=== PATIENT | female | born 1975 | race Caucasian/White ===

== ENCOUNTER 2019-08-15 07:28 | Emergency (ER) | payer MEDICARE, MEDICAID ==
--- OUTSIDE RECORDS SUMMARY | 2019-08-15 07:37 | XMS REPORT | Continuity of Care Document ---
:1975 External Reference #:[id number] Author Name JAY JAY Gottlieb Address [address] [place] [id number] Problems Active Problems Provider Date Pneumonia Onset: 10/31/2018 Adult health examination Onset: 02/15/2018 Social History Type Date Description Comments Sex Unknown Tobacco Use Start: Unknown Patient has never smoked Tobacco Use Start: Unknown End: Unknown Patient is a former smoker Smoking Status Reviewed: 07/18/19 Patient is a former smoker Allergies, Adverse Reactions, Alerts Description No Information Available Medications Active Medications SIG Qnty Indications Ordering Date Provider Clear Away One Step 1 pad to 72units B07.0 JAY JAY Gottlieb 07/18/2019 Wart Remover plantar wart 40% Pads daily Escitalopram Oxalate Oral; Take 1 & 45tabs Janice 05/31/2019 1/2 Tablets By Uche, DO 10mg Tablets Mouth Every Day (Anti-Anxiety) Nortrel 1/35 (28) Oral; Take One 84tabs Unknown 03/14/2019 Tablet By Mouth 1-35mg-mcg Tablets Every Day (Hormone) Metformin HCL Oral; Take One 180tabs Unknown 02/11/2019 1000mg Tablet By Mouth Tablets 2 Times A Day (PCOS) Mometasone Furoate Nasal; 2 Sprays 17units Unknown 11/21/2018 Each Nostril 50mcg/Act Suspension Every Day as Needed (Nasal Congestion) Use For 5 Days Tab-A-Olya/Iron Oral; Take One 30tabs Unknown 09/01/2018 Tablet By Mouth Tablets Everyday (Supplement) Nortrel 1/35 (28) Oral; Take One 84tabs Unknown 04/05/2018 Tablet By Mouth 1-35mg-mcg Tablets Every Day (Hormone) Triamcinolone External; Apply 30units Unknown 12/29/2016 Acetonide To Chest Rash 2 0.1% Cream Times A Day as Needed (May Apply To Neck & Chest) Bacitracin-Neomycin- External; Apply 28.35units Unknown 10/17/2015 Polymyxin To 400-5-5000 Cuts/Abrasions Ointment as Needed (Antibacterial) Mucinex Oral; Take One 60tabs Unknown 08/27/2014 600mg Tablets Tablet By Mouth ER 12HR 2 Times A Day as Needed To Improve Ear Drainage (MDD=2 Tabs) Immunizations CPT Code Status Date Vaccine Lot # [id number] Given 06/05/2013 Flu High Dose 29477 Given 06/05/2013 Flumist 67990 Given 06/05/2013 Influenza Virus Vaccine, Quadrivalent, Split, Preservative Free 25790 Given 06/05/2013 Flu < 65 years 74137 Given 06/05/2013 Influenza Virus Vaccine, Quadrivalent, Split, Im Use 0.25ML 88025 Given 06/05/2013 Influenza Virus Vaccine, Quadrivalent, Split, Im Use 0.25ML 04060 Given 06/05/2013 Influenza Virus Vaccine, Quadrivalent, Split, Im Use 0.25ML 68393 Given 09/04/2012 Hep A Adult for >18 yrs Havrix/Vaqta 41308 Given 06/12/2012 Influenza Virus Vaccine, Quadrivalent, Split, Im Use 0.25ML 55669 Given 06/12/2012 Influenza Virus Vaccine, Quadrivalent, Split, Im Use 0.25ML 00894 Given 06/12/2012 Influenza Virus Vaccine, Quadrivalent, Split, Im Use 0.25ML 43626 Given 06/12/2012 Flu < 65 years 01687 Given 06/12/2012 Influenza Virus Vaccine, Quadrivalent, Split, Preservative Free 38485 Given 06/12/2012 Flumist 30086 Given 06/12/2012 Flu High Dose 13981 Given 02/29/2012 Hep A Adult for >18 yrs Havrix/Vaqta 33817 Given 06/12/2011 Influenza Virus Vaccine, Quadrivalent, Split, Im Use 0.25ML 17025 Given 07/21/2010 Tdap - Boostrix/Adacel [id number] Refused 08/23/2018 Influenza Virus Vaccine, Quadrivalent, Split, Im Use 0.25ML 63648 Refused 02/15/2018 Influenza Virus Vaccine, Quadrivalent, Split, Im Use 0.25ML 77391 Refused 08/16/2016 Influenza Virus Vaccine, Quadrivalent, Split, Im Use 0.25ML Vital Signs Date Vital Result Comment 07/18/2019 3:05pm Height 57.25 inches 4'9.25" Weight 177.00 lb Heart Rate 97 /min Body Temperature 98.3 F O2 % BldC Oximetry 97 % BMI (Body Mass Index) 38.0 kg/m2 06/28/2019 3:00pm BP Systolic 102 mmHg BP Diastolic 70 mmHg Height 58.25 inches 4'10.25" Weight 176.00 lb Heart Rate 86 /min Body Temperature 98.1 F O2 % BldC Oximetry 96 % BMI (Body Mass Index) 36.5 kg/m2 Results Test Acquired Facility Test Result H/L Range Note Date 10 Yr CHD Risk 03/22/2019 N2N/CCD Import 10 Yr CHD Risk 0.5% TSH 03/16/2019 N2N/CCD Import TSH 2.51 0.34-5.6 mcIU/mL 0 mcIU/mL Triglycerides 03/16/2019 N2N/CCD Import Triglycerides 78 mg/dL Sodium 03/16/2019 N2N/CCD Import Sodium 139 135-145 mmol/L mmol/L Protein, Total 03/16/2019 N2N/CCD Import Protein, Total 6.8 g/dL 6.4- 8.9 g/dL Potassium 03/16/2019 N2N/CCD Import Potassium 4.4 3.5-5.0 mmol/L mmol/L LDL Cholesterol 03/16/2019 N2N/CCD Import LDL Cholesterol 117 mg/dL Hemoglobin A1c 03/16/2019 N2N/CCD Import Hemoglobin A1c 5.8 % High 4.0- 5.6 % HDL Cholesterol 03/16/2019 N2N/CCD Import HDL Cholesterol 59.5 mg/dL Glucose 03/16/2019 N2N/CCD Import Glucose 79 mg/dL 70-100 mg/dL Globulin 03/16/2019 N2N/CCD Import Globulin 2.6 g/dL 2-4 g/dL GFR Non Afr Amer 03/16/2019 N2N/CCD Import GFR Non Afr Amer 106.5 _ >60 GFR Afr Amer 03/16/2019 N2N/CCD Import GFR Afr Amer 128.9 _ >60 Ferritin 03/16/2019 N2N/CCD Import Ferritin 49.5 11-307 ng/mL ng/mL Creatinine 03/16/2019 N2N/CCD Import Creatinine 0.61 0.51-0.9 mg/dL 5 mg/dL Co2 03/16/2019 N2N/CCD Import Co2 24 mmol/L 22-32 mmol/L Cholesterol 03/16/2019 N2N/CCD Import Cholesterol 192 mg/dL Chloride 03/16/2019 N2N/CCD Import Chloride 107 101-111 mmol/L mmol/L Calcium 03/16/2019 N2N/CCD Import Calcium 9.2 mg/dL 8.6-10.3 mg/dL BUN/Creat Ratio 03/16/2019 N2N/CCD Import BUN/Creat Ratio 14.8 _ 8-20 BUN 03/16/2019 N2N/CCD Import BUN 9 mg/dL 6-24 mg/dL Bilirubin Total 03/16/2019 N2N/CCD Import Bilirubin Total 0.70 0.2-1.0 mg/dL mg/dL Ast 03/16/2019 N2N/CCD Import Ast 20 U/L 13-39 U/L Anion Gap 03/16/2019 N2N/CCD Import Anion Gap 8 mmol/L 2-11 mmol/L Alt 03/16/2019 N2N/CCD Import Alt 29 U/L 7-52 U/L Alk Phos 03/16/2019 N2N/CCD Import Alk Phos 72 U/L 34-104 U/L Albumin 03/16/2019 N2N/CCD Import Albumin 4.2 g/dL 3.2-5.2 g/dL A/G Ratio 03/16/2019 N2N/CCD Import A/G Ratio 1.6 _ 1-3 Procedures Description No Information Available Medical Devices Description No Information Available Encounters Type Date Location Provider Dx Diagnosis Office Visit 07/18/2019 3:15p [facility] JAY JAY Kern M79.671 Pain in right foot B07.0 Plantar wart Office Visit 06/28/2019 3:00p [facility] Janice Ivey DO Z00.00 Encntr for general adult medical exam w/o abnormal findings Z12.31 Encntr screen mammogram for malignant neoplasm of breast Z68.36 Body mass index (BMI) 36.0-36.9, adult Assessments Date Code Description Provider 07/18/2019 M79.671 Pain in right foot Alisson Kern, JAY JAY 07/18/2019 B07.0 Plantar wart Alisson Kern, I&C TECH 06/28/2019 Z00.00 Encounter for general adult medical Janice Krunalteddy, examination without abnormal findings 06/28/2019 Z12.31 Encounter for screening mammogram for Janice Ivey, DO malignant neoplasm of breast 06/28/2019 Z68.36 Body mass index (BMI) 36.0-36.9, adult Janice Ivey DO Plan of Treatment Future Appointment(s):12/27/2019 3:00 pm - Janice Ivey DO at [facility] - Alisson KernERNYPM79.671 Pain in right footComments:discussed foot pain that appears to be caused by plantar wart on her heel recommend using OTC wart medication can consider returning for cryotherapy if no improvement can take acetaminophen or ibuprofen as needed for pain in foot follow up as needed paperwork completed for assisted gbbwesF44.0 Plantar wartNew Medication:Clear Away One Step Wart Remover 40 % - 1 pad to plantar wart daily Functional Status Description No Information Available Mental Status Description No Information Available Referrals Description No Information Available
--- OUTSIDE RECORDS SUMMARY | 2019-08-15 07:38 | XMS REPORT | Continuity of Care Document ---
:1975 External Reference #:[id number] Author Name Janice Ivey, DO Address [address] [place] [address] Problems Active Problems Provider Date Pneumonia Onset: 10/31/2018 Adult health examination Onset: 02/15/2018 Social History Type Date Description Comments Sex Unknown Tobacco Use Start: Unknown Patient has never smoked Smoking Status Reviewed: 06/28/19 Patient has never smoked Allergies, Adverse Reactions, Alerts Description No Information Available Medications Active Medications SIG Qnty Indications Ordering Date Provider Escitalopram Oxalate Oral; Take 1 & 45tabs Janice 05/31/2019 1/2 Tablets By Krunalteddy, DO 10mg Tablets Mouth Every Day (Anti-Anxiety) [...] CPT Code Status Date Vaccine Lot # [id number] Given 06/05/2013 Flu High Dose 16085 Given 06/05/2013 Flumist 18063 Given 06/05/2013 Influenza Virus Vaccine, Quadrivalent, Split, Preservative Free 43883 Given 06/05/2013 Flu < 65 years 81479 Given 06/05/2013 Influenza Virus Vaccine, Quadrivalent, Split, Im Use 0.25ML 14395 Given 06/05/2013 Influenza Virus Vaccine, Quadrivalent, Split, Im Use 0.25ML 42324 Given 06/05/2013 Influenza Virus Vaccine, Quadrivalent, Split, Im Use 0.25ML 59689 Given 09/04/2012 Hep A Adult for >18 yrs Havrix/Vaqta 17142 Given 06/12/2012 Influenza Virus Vaccine, Quadrivalent, Split, Im Use 0.25ML 24551 Given 06/12/2012 Influenza Virus Vaccine, Quadrivalent, Split, Im Use 0.25ML 26010 Given 06/12/2012 Influenza Virus Vaccine, Quadrivalent, Split, Im Use 0.25ML 72678 Given 06/12/2012 Flu < 65 years 60005 Given 06/12/2012 Influenza Virus Vaccine, Quadrivalent, Split, Preservative Free 32533 Given 06/12/2012 Flumist 24534 Given 06/12/2012 Flu High Dose 47265 Given 02/29/2012 Hep A Adult for >18 yrs Havrix/Vaqta 45232 Given 06/12/2011 Influenza Virus Vaccine, Quadrivalent, Split, Im Use 0.25ML 38600 Given 07/21/2010 Tdap - Boostrix/Adacel 22076 Refused 08/23/2018 Influenza Virus Vaccine, Quadrivalent, Split, Im Use 0.25ML 62269 Refused 02/15/2018 Influenza Virus Vaccine, Quadrivalent, Split, Im Use 0.25ML 93972 Refused 08/16/2016 Influenza Virus Vaccine, Quadrivalent, Split, Im Use 0.25ML Vital Signs Date Vital Result Comment 06/28/2019 3:00pm BP Systolic 102 mmHg BP Diastolic 70 mmHg Height 58.25 inches 4'10.25" Weight 176.00 lb Heart Rate 86 /min Body Temperature 98.1 F O2 % BldC Oximetry 96 % BMI (Body Mass Index) 36.5 kg/m2 10/31/2018 1:43pm BP Systolic 110 mmHg Height 57.50 inches 4'9.50" Weight 167.00 lb Heart Rate 109 /min Body Temperature 98.3 F O2 % BldC Oximetry 96 % BMI (Body Mass Index) 35.51 kg/m2 Results Test Acquired Facility Test Result [...] Date Location Provider Dx Diagnosis Office Visit 06/28/2019 [facility] Janice Ivey, Z00.00 Encntr for general 3:00p adult medical exam w/o abnormal findings Z12.31 Encntr screen mammogram for malignant neoplasm of breast Z68.36 Body mass index (BMI) 36.0-36.9, adult Assessments Date Code Description Provider 06/28/2019 Z00.00 Encounter for general adult medical Janice IveyDO examination without abnormal findings 06/28/2019 Z12.31 Encounter for screening mammogram for Janice Ivey, DO malignant neoplasm of breast 06/28/2019 Z68.36 Body mass index (BMI) 36.0-36.9, adult Janice Ivey, DO Plan of Treatment Future Appointment(s):12/27/2019 3:00 pm - Janice Ivey, DO at [facility] Main - Janice Ivey, DOZ00.00 Encounter for general adult medical examination without abnormal findingsComments:Generally doing well No major complaints today except finger for which she will see derm Declines flu vaccinedeclines [facility] orderedPlan is 6month follow up, sooner if faarlqD61.31 Encounter for screening mammogram for malignant neoplasm of breastNew Xrays:Mammography, Bilateral, Ordered: 06/28/19Comments:Discussed every year vs every other year - because we do not know family hx, I think every year is advisable - pt agrees to thisZ68.36 Body mass index (BMI) 36.0- 36.9, adultComments:Encouraged healthy lifestyle changes including increasing exercise, which she reports she is trying to do Functional Status Description No Information Available Mental Status Description No Information Available Referrals Description No Information Available
[2019-08-15 08:05] VITALS: BP 134/80
[2019-08-15] MEDS ORDERED: Tetan/Diph/Pertus SYR(Tdap)* 0.5 ML SYR(BOOSTRIX) use SYR contains LATEX IM ONE (08:41)
[2019-08-15] MEDS ORDERED: Ibuprofen TAB* 600 MG PO ONE (08:52)
[2019-08-15] MEDS ORDERED: Lidocaine 1% MPF ** 5 ML VIAL INJ ONE (09:35)
--- NOTE | 2019-08-15 09:40 | UC ---
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 NOT UP-TO-DATE TETANUS. - History Of Current Complaint Chief Complaint: UCLaceration Stated Complaint: CUT HAND Time Seen by Provider: 08/15/19 08:04 Hx Obtained From: Patient Hx Last Menstrual Period: 10/22/18 Laceration Location: Hand - RIGHT Mechanism Of Injury: Sharp Trauma Onset/Duration: Sudden Onset, Lasting Hours, Still Present Severity: Moderate Pain Intensity: 7 Pain Scale Used: 0-10 Numeric Aggravating Factors: Movement Related History: Dominant Hand Right - Allergies/Home Medications Allergies/Adverse Reactions: Allergies Allergy/AdvReac Type Severity Reaction Status Date / Time No Known Allergies Allergy Verified 10/29/18 13:38 PMH/Surg Hx/FS Hx/Imm Hx - Additional Past Medical History Additional PMH: DEVELOPMENTAL DELAY - Surgical History Surgical History: Yes Surgery Procedure, Year, and Place: Artificial Tympanic Membrane as a child - Family History Known Family History: Positive: Unknown - Social workers states [place] FMHX - Social History Alcohol Use: None Substance Use Type: None Smoking Status (MU): Never Smoked Tobacco - Immunization History Vaccination Up to Date: Yes Review of Systems All Other Systems Reviewed And Are Negative: Yes Constitutional: Positive: Negative Skin: Positive: Other - LACERATION RIGHT HAND Respiratory: Positive: Negative Cardiovascular: Positive: Negative Gastrointestinal: Positive: Negative Musculoskeletal: Positive: Negative Physical Exam Triage Information Reviewed: Yes Appearance: Well-Appearing, No Pain Distress, Well-Nourished Vital Signs: Initial Vital Signs Temp 97.6 F 08/15/19 07:59 Pulse 94 08/15/19 07:59 Resp 16 08/15/19 07:59 BP 134/80 08/15/19 07:59 Pulse Ox 98 08/15/19 07:59 Vital Signs Reviewed: Yes Eyes: Positive: Conjunctiva Clear ENT: Positive: Hearing grossly normal Neck: Positive: Supple Respiratory: Positive: No respiratory distress, No accessory muscle use Cardiovascular: Positive: Pulses Normal Abdomen Description: Positive: Soft Musculoskeletal: Positive: ROM Intact, No Edema Neurological: Positive: Alert Psychological: Positive: Other: - BEHAVIOR AT BASELINE Skin: Positive: Other - 2.3CM LINEAR LACERATION RIGHT 1ST INTERDIGITAL WEBSPACE Laceration Repair - Laceration Repair 1 Description: Linear Laceration Size After Repair: Length (cm) - 2.3CM, Width (mm) - 0MM, Depth (mm) - 2MM Modified For Repair: No Type Injection: Local Anesthesia Used: 1.0% Lido Cleansing Completed Via Routine Prep: Yes Closure Material: Sutures - 7 SIMPLE INTERRUPTED Closure Method: Single Layer Suture Of: Skin Suture Type: Prolene - 5-0 Laceration Course/Dx - Course/Dx Course Of Treatment: LACERATION REPAIRED WITHOUT DIFFICULTY. TDAP BOOSTED. - Diagnosis Provider Diagnosis: Laceration of right hand, Need for Tdap vaccination Discharge ED - Sign-Out/Discharge Documenting (check all that apply): Patient Departure All imaging exams completed and their final reports reviewed: No Studies - Discharge Plan Condition: Stable Disposition: HOME Patient Education Materials: Laceration (ED) Forms: *Work Release Referrals: Ronda Banegas MD [Primary Care Provider] - If Needed Additional Instructions: KEEP DRESSINGS IN PLACE AND DRY FOR THE FIRST 24 HRS. THEN YOU MAY REMOVE THE DRESSING AND GENTLY CLEANSE WITH SOAP AND WATER. PAT DRY AND RE-BANDAGE. APPLY THIN LAYER ANTIBIOTIC OINTMENT UNDER BANDAGE FOR FIRST 3-4 DAYS ONLY. I RECOMMEND AVOIDING NEOMYCIN CONTAINING PRODUCTS THEY CAN BE HIGHLY ALLERGENIC. CHANGE BANDAGE DAILY AND NEEDED IF IT BECOMES SOILED OR WET. SEEK FOLLOW-UP IF YOU DEVELOP SPREADING REDNESS OF THE SKIN, PURULENT DRAINAGE, FEVER, INCREASED PAIN OR ANY OTHER CONCERNING SYMPTOMS. RETURN TO HAVE YOUR SEVEN SUTURES REMOVED IN 10 DAYS - Billing Disposition and Condition Condition: STABLE Disposition: Home
== END 2019-08-15 10:24 | disposition home or self-care (01) ==
LOC: UCEAST 07:28
DX: S61.411A Laceration without foreign body of right hand, initial encounter (principal); Z23 Encounter for immunization; W26.8XXA Contact with other sharp object(s), not elsewhere classified, initial encounter; Y92.9 Unspecified place or not applicable
CPT/HCPCS: 12001; 90471; 90715; 99211; A9270-GY; G0463

== ENCOUNTER 2019-08-24 09:17 | Emergency (ER) | payer MEDICARE, MEDICAID ==
--- NOTE | 2019-08-24 10:16 | UC ---
HPI Wound/Suture Re-check - HPI Summary HPI Summary: PATIENT HAD 7 SUTURES PLACED IN HER RIGHT HAND FIRST INTERDIGITAL WEBSPACE ON . WOUND IS HEALING WELL. HERE FOR SUTURE REMOVAL. - History Of Current Complaint Chief Complaint: UCLaceration Stated Complaint: REMOVE STITCHES Time Seen by Provider: 08/24/19 09:42 Hx Obtained From: Patient, Family/Slitter Creaser Slotter Helper - MOTHER Hx Last Menstrual Period: 08/23/19 Onset/Duration: Sudden Onset Severity: Mild Pain Intensity: 0 Pain Scale Used: 0-10 Numeric - Allergies/Home Medications Allergies/Adverse Reactions: Allergies Allergy/AdvReac Type Severity Reaction Status Date / Time No Known Allergies Allergy Verified 08/24/19 09:25 PMH/Surg Hx/FS Hx/Imm Hx - Additional Past Medical History Additional PMH: DEVELOPMENTAL DELAY - Surgical History Surgical History: Yes Surgery Procedure, Year, and Place: Artificial Tympanic Membrane as a child - Family History Known Family History: Positive: Unknown - Social workers states [place] FMHX - Social History Alcohol Use: None Substance Use Type: None Smoking Status (MU): Never Smoked Tobacco - Immunization History Vaccination Up to Date: Yes Review of Systems All Other Systems Reviewed And Are Negative: Yes Constitutional: Positive: Negative Skin: Positive: Other - HEALING LACERATION RIGHT HAND Respiratory: Positive: Negative Cardiovascular: Positive: Negative Gastrointestinal: Positive: Negative Physical Exam Triage Information Reviewed: Yes Appearance: Well-Appearing, No Pain Distress, Well-Nourished Vital Signs: Initial Vital Signs Temp 96.8 F 08/24/19 09:18 Pulse 92 08/24/19 09:18 Resp 16 08/24/19 09:18 BP 137/90 08/24/19 09:18 Pulse Ox 100 08/24/19 09:18 Vital Signs Reviewed: Yes Eyes: Positive: Conjunctiva Clear ENT: Positive: Hearing grossly normal Neck: Positive: Supple Respiratory: Positive: No respiratory distress, No accessory muscle use Cardiovascular: Positive: Pulses Normal Musculoskeletal: Positive: ROM Intact, No Edema Neurological: Positive: Alert Psychological: Positive: Age Appropriate Behavior Skin: Positive: Other - LACERATION RIGHT HAND 1ST INTERDIGITAL WEBSPACE WELL HEALED. C/D/I. NO SURROUNDING ERYTHEMA. Course/Dx - Course Course Of Treatment: 7 SUTURES REMOVED WITHOUT DIFFICULTY. ONE STERI-STRIP APPLIED FOR REINFORCEMENT. FOLLOW-UP IF NEEDED. - Diagnosis Provider Diagnosis: Visit for suture removal Discharge ED - Sign-Out/Discharge Documenting (check all that apply): Patient Departure All imaging exams completed and their final reports reviewed: No Studies - Discharge Plan Condition: Stable Disposition: HOME Patient Education Materials: Stitches Removal (ED) Referrals: Ronda Banegas MD [Primary Care Provider] - Additional Instructions: YOUR WOUND LOOKS GOOD AND IS HEALING WELL. 7 SUTURES REMOVED WITHOUT DIFFICULTY. STERI-STRIPS APPLIED FOR REINFORCEMENT. THEY WILL FALL OFF ON THEIR OWN IN THE NEXT 1-2 WEEKS. DO NOT PUT ANY OINTMENT ON TOP OF THEM. DO NOT SUBMERGE IN WATER FOR PROLONGED PERIOD OF TIME. - Billing Disposition and Condition Condition: STABLE Disposition: Home
[2019-08-24 10:30] VITALS: BP 137/90
== END 2019-08-24 10:25 | disposition home or self-care (01) ==
LOC: UCEAST 09:17
DX: S61.411D Laceration without foreign body of right hand, subsequent encounter (principal); X58.XXXD Exposure to other specified factors, subsequent encounter

== ENCOUNTER 2024-09-06 16:57 | Observation (INO) ==
[2024-09-06 17:38] LABS: ABS Eosinophils 0.2 10^3/uL (0.0-0.5); ABS Monocytes 0.4 10^3/uL (0.0-0.9); ABS Neutrophils 4.6 10^3/uL (1.5-7.6); Eosinophil % 2.3 %; Hematocrit 42.2 % (35-45); Hemoglobin 14.3 g/dL (11.5-14.3); Lymphocyte % 28.4 %; Mean Corpuscular Hemoglobin 30.1 pg (27-33); Mean Corpuscular Hgb Conc 33.8 g/dL (31-36); Mean Platelet Volume 6.9 fL (7.5-11.2); Nucleated Red Blood Cells % 0.1 %/100WBC (0.0-0.8); Platelet Count 471 10^3/uL (150-450); Red Blood Count 4.74 10^6/uL (3.63-4.92); Red Cell Distribution Width 13.7 % (12-17); White Blood Count 7.2 10^3/uL (3.8-11.8)
[2024-09-06 17:57] LABS: Urine Appearance Clear; Urine Bilirubin Negative (Negative); Urine Blood Negative (Negative); Urine Color Yellow; Urine Glucose Negative (Negative); Urine Ketones Negative (Negative); Urine Nitrite Negative (Negative); Urine Protein Negative (Negative); Urine Specific Gravity 1.018 (1.002-1.030); Urine Urobilinogen Negative (Negative)
[2024-09-06 18:07] LABS: ALT 48 U/L (7-52); Albumin 4.8 g/dL (3.5-5.7); Albumin/Globulin Ratio 1.7 (1-3); Alkaline Phosphatase 119 U/L (35-149); Blood Urea Nitrogen 14 mg/dL (6-24); CO2 Carbon Dioxide 27 mmol/L (22-32); Calcium 9.8 mg/dL (8.6-10.3); Chloride 105 mmol/L (101-111); Creatinine, Serum 1.12 mg/dL (0.51-0.95); Globulin 2.9 g/dL (2-4); Glucose 145 mg/dL (70-100); Sodium 138 mmol/L (135-145); Total Bilirubin 0.5 mg/dL (0.2-1.0); Total Protein 7.7 g/dL (6.4-8.9); eGFR CKD-EPI 60.3 (>60)
[2024-09-06 18:08] LABS: Anion Gap 6 mmol/L (2-16)
[2024-09-06] MEDS ORDERED: Sulfur Hexaflouride MICROSPHR 25 MG VIAL IV PRN (20:32)
[2024-09-06] MEDS ORDERED: Dextrose 50% Syringe 50 ml 25 GM/50 ML SYRINGE IV PUSH PRN (21:09)
[2024-09-06] MEDS ORDERED: Metformin ER 750 mg TAB (NF) PO SCH (22:00)
[2024-09-06 22:58] LABS: Cholesterol 164 mg/dL; HDL Cholesterol 56.9 mg/dL; LDL Cholesterol 78 mg/dL; Triglycerides 147 mg/dL
[2024-09-06] MEDS: Enoxaparin 40 MG/0.4 ML SYR SUBCUT SCH (23:27)
[2024-09-06] MEDS: Aspirin EC 81 mg TAB.EC (enteric coated) PO SCH (23:27)
[2024-09-07 00:56] LABS: Potassium Redraw 4.1 mmol/L (3.5-5.0)
[2024-09-07] MEDS: MAGNESIUM CHLORIDE 71.5 MG PO SCH (08:35)
[2024-09-07] MEDS: Polyethylene Glycol 3350 17 GM PACKET PO SCH (08:36)
[2024-09-07] MEDS: CMCS: Riboflavin (B2) 100 mg TAB(NF) PO SCH (08:42)
[2024-09-07] MEDS: Fluticasone NASAL SPRAY 50MCG 16 gm SPRAY BTL INTRANASAL SCH (08:50)
[2024-09-07] MEDS: Iodixanol 320 (CONTRAST) 100 ML SDV IV ONE (08:50)
[2024-09-08 06:01] LABS: ABS Eosinophils 0.2 10^3/uL (0.0-0.5); ABS Lymphocytes 0.6 10^3/uL (1.0-4.8); ABS Monocytes 0.4 10^3/uL (0.0-0.9); ABS Neutrophils 4.8 10^3/uL (1.5-7.6); Eosinophil % 3.1 %; Hematocrit 43.1 % (35-45); Hemoglobin 14.5 g/dL (11.5-14.3); Lymphocyte % 10.4 %; Mean Corpuscular Hemoglobin 30.6 pg (27-33); Mean Corpuscular Hgb Conc 33.7 g/dL (31-36); Mean Corpuscular Volume 90.7 fL (80-97); Mean Platelet Volume 6.5 fL (7.5-11.2); Platelet Count 385 10^3/uL (150-450); Red Blood Count 4.75 10^6/uL (3.63-4.92); Red Cell Distribution Width 13.7 % (12-17)
[2024-09-08 06:13] LABS: Calcium 9.3 mg/dL (8.6-10.3); Creatinine, Serum 0.62 mg/dL (0.51-0.95); Magnesium 2.2 mg/dL (1.9-2.7); Potassium 4.6 mmol/L (3.5-5.0); eGFR CKD-EPI 109.1 (>60)
[2024-09-09 05:54] LABS: ABS Lymphocytes 1.2 10^3/uL (1.0-4.8); ABS Monocytes 0.5 10^3/uL (0.0-0.9); ABS Neutrophils 3.2 10^3/uL (1.5-7.6); Eosinophil % 0.8 %; Hematocrit 39.9 % (35-45); Hemoglobin 13.7 g/dL (11.5-14.3); Lymphocyte % 23.7 %; Mean Corpuscular Hemoglobin 30.9 pg (27-33); Mean Corpuscular Hgb Conc 34.3 g/dL (31-36); Mean Corpuscular Volume 90.2 fL (80-97); Mean Platelet Volume 6.5 fL (7.5-11.2); Platelet Count 401 10^3/uL (150-450); Red Blood Count 4.42 10^6/uL (3.63-4.92); Red Cell Distribution Width 13.6 % (12-17); White Blood Count 4.9 10^3/uL (3.8-11.8)
[2024-09-09 06:12] LABS: Calcium 9.3 mg/dL (8.6-10.3); Creatinine, Serum 0.63 mg/dL (0.51-0.95); Magnesium 2.1 mg/dL (1.9-2.7); Potassium 4.2 mmol/L (3.5-5.0); eGFR CKD-EPI 108.7 (>60)
[2024-09-09] MEDS ORDERED: Dextran 70/Hypromellose Tears Eye Drops 15 ml BTL (for Artificials Tears) RIGHT EYE PRN (12:32)
[2024-09-09] MEDS: Artificial Tear OPHTH.OINT 3.5 GM RIGHT EYE PRN (21:30)
[2024-09-10 06:11] LABS: ABS Eosinophils 0.1 10^3/uL (0.0-0.5); ABS Lymphocytes 2.1 10^3/uL (1.0-4.8); ABS Monocytes 0.5 10^3/uL (0.0-0.9); ABS Neutrophils 3.7 10^3/uL (1.5-7.6); ABS Nucleated RBC 0.01 10^3/ul; Eosinophil % 0.8 %; Hematocrit 40.5 % (35-45); Hemoglobin 13.9 g/dL (11.5-14.3); Lymphocyte % 33.2 %; Mean Corpuscular Hemoglobin 30.7 pg (27-33); Mean Corpuscular Hgb Conc 34.2 g/dL (31-36); Mean Corpuscular Volume 89.9 fL (80-97); Mean Platelet Volume 6.6 fL (7.5-11.2); Nucleated Red Blood Cells % 0.2 %/100WBC (0.0-0.8); Platelet Count 412 10^3/uL (150-450); Red Blood Count 4.51 10^6/uL (3.63-4.92); Red Cell Distribution Width 13.6 % (12-17); White Blood Count 6.3 10^3/uL (3.8-11.8)
[2024-09-10 06:41] LABS: Calcium 9.1 mg/dL (8.6-10.3); Creatinine, Serum 0.59 mg/dL (0.51-0.95); Magnesium 2.3 mg/dL (1.9-2.7); Potassium 4.1 mmol/L (3.5-5.0); eGFR CKD-EPI 110.4 (>60)
[2024-09-10] MEDS ORDERED: fentaNYL 100 mcg/2 ml 50 MCG/ML VIAL ONE (10:57)
[2024-09-10] MEDS ORDERED: Naloxone 0.4 mg VIAL 0.4 mg/ml 1 ml VIAL ONE (10:58)
[2024-09-10] MEDS ORDERED: Midazolam 5 mg/5 ml VIAL 1 mg/ml 5 ml VIAL (5 mg) ONE (10:58)
[2024-09-10] MEDS ORDERED: Flumazenil 0.5 mg/5 ml 0.1 MG/ML 5 ml VIAL ONE (10:58)
[2024-09-10] MEDS ORDERED: Flumazenil 0.5 mg/5 ml 0.1 MG/ML 5 ml VIAL IV PRN (11:42)
[2024-09-10] MEDS ORDERED: Naloxone 0.4 mg VIAL 0.4 mg/ml 1 ml VIAL IV PUSH PRN (11:42)
[2024-09-10] MEDS: NS 0.9% 1000 ml BAG 1,000 ML IV ONE (12:36)
[2024-09-10] MEDS: Midazolam 10 mg/10 ml VIAL 1 mg/ml 10 ml VIAL (10 mg) IV SLOW PU ONE (12:37)
[2024-09-10] MEDS: fentaNYL 100 mcg/2 ml 50 MCG/ML VIAL IV SLOW PU ONE (12:37)
[2024-09-10 13:09] VITALS: BP 111/73
== END 2024-09-10 14:48 ==
LOC: ED 16:57 → EDHOLD 16:57 → SUATTDRO 20:32 → EDHOLD 22:46 → MEDTELE 23:09
PROVIDERS: ADMIT Hospitalist; ATTEND Student in an Organized Health Care Education/Training Program